=== PATIENT | male | born 1985 | race Caucasian/White ===

== ENCOUNTER 2024-10-06 07:28 | Emergency (ER) | payer OTHER ==
[~2024-10-06] VITALS: Ht 172.7 cm; Wt 77.1 kg
[~2024-10-06 07:28] MED LIST: ALPR.5 PO; CYCL10 PO; Naprosyn500 MG PO; Norco 5-325 Ta1 EACH PO; OXYACE5T PO; OXYC15ER PO; Percocet 5-3251 EACH PO; SULTRIDS PO
[2024-10-06 08:10] VITALS: BP 171/11
[2024-10-06] MEDS ORDERED: AMOX500 PO (08:14)
== END 2024-10-06 08:45 | disposition home or self-care (01) ==
LOC: ER 07:28
DX: K04.7 Periapical abscess without sinus (principal); Z79.899 Other long term (current) drug therapy; Z87.891 Personal history of nicotine dependence
CPT/HCPCS: 99282

== ENCOUNTER → 2025-02-22 | Emergency (ER) | payer OTHER ==
[~2025-02-22] VITALS: Ht 170.2 cm; Wt 74.8 kg
[~2025-02-22] MED LIST changes: +AMOX500 PO
[2025-02-22 18:17] VITALS: BP 121/90
== END ==
LOC: ER 18:11
DX: S51.852A Open bite of left forearm, initial encounter (principal); W54.0XXA Bitten by dog, initial encounter; Z87.891 Personal history of nicotine dependence
CPT/HCPCS: 12002; 99283-25; A9270

== ENCOUNTER 2025-05-13 14:50 | Emergency (ER) | payer OTHER ==
[~2025-05-13] VITALS: Ht 175.3 cm; Wt 72.6 kg
[2025-05-13 17:03] LABS: BASOPHILS ABSOLUTE AUTO 0.05 K/mm3 (0.00-0.23); BASOPHILS PERCENT AUTO 1 % (0-2); EOSINOPHILS ABSOLUTE AUTO 0.06 K/mm3 (0.00-0.68); EOSINOPHILS PERCENT AUTO 1 % (0-6); Hematocrit 28.6 % (37.0-53.0); Hemoglobin 10.1 g/dL (13.5-17.5); IMMATURE GRAN ABSOLUTE AUTO 0.02 K/mm3 (0.00-0.10); IMMATURE GRAN PERCENT AUTO 0 % (0-1); LYMPHOCYTES ABSOLUTE AUTO 1.38 K/mm3 (0.84-5.20); LYMPHOCYTES PERCENT AUTO 18 % (21-46); MONOCYTES ABSOLUTE AUTO 0.65 K/mm3 (0.16-1.47); MONOCYTES PERCENT AUTO 9 % (4-13); Mean Corpuscular HGB Conc 35.3 g/dL (31.5-36.5); Mean Corpuscular Volume 88 fL (80-100); NEUTROPHILS ABSOLUTE AUTO 5.45 K/mm3 (1.96-9.15); NEUTROPHILS PERCENT AUTO 72 % (41-73); NRBC ABSOLUTE 0.00 K/mm3 (0.00-0.02); NRBC Auto 0.0 /100 WBC (0.0-0.2); Platelet Count 321 K/mm3 (150-400); RDW Coefficient Variation 11.9 % (11.7-14.2); RDW Standard Deviation 38.4 fL (35.1-46.3)
[2025-05-13 17:18] LABS: Prothrombin Time Results 10.9 Sec (9.7-11.5)
[2025-05-13 17:23] LABS: Anion Gap 12.0 mmol/L (3-11); Blood Urea Nitrogen 43.0 mg/dL (8-24); CO2, Blood 24.0 mmol/L (21-32); Calcium, Blood 8.5 mg/dL (8.5-10.1); Chloride, Blood 103.0 mmol/L (98-108); Creatinine, Blood 0.71 mg/dL (0.60-1.20); Glucose, Blood 100.0 mg/dL (70-99); Potassium, Blood 4.6 mmol/L (3.5-5.5); Sodium, Blood 134.0 mmol/L (136-145)
[2025-05-13 18:00] VITALS: BP 116/76
[2025-05-13] MEDS ORDERED: AMOCLA875 PO (18:13)
== END 2025-05-13 18:31 | disposition home or self-care (01) ==
LOC: ER 14:50
PROVIDERS: Student in an Organized Health Care Education/Training Program
DX: S02.2XXA Fracture of nasal bones, initial encounter for closed fracture (principal); S01.21XA Laceration without foreign body of nose, initial encounter; Z79.899 Other long term (current) drug therapy; Z87.891 Personal history of nicotine dependence; W22.8XXA Striking against or struck by other objects, initial encounter; Y93.44 Activity, trampolining
CPT/HCPCS: 70450; 70486; 72125; 80048; 85025; 85610; 85730; 99284-25; A9270

== ENCOUNTER 2025-05-20 12:33 | Day surgery (SDC) | payer OTHER ==
[~2025-05-20] VITALS: Ht 170.2 cm; Wt 67.8 kg
[~2025-05-20 12:33] MED LIST changes: +AMOCLA875 PO; +NS 500 ML IV ONE
[2025-05-20] MEDS ORDERED: ALPR1 PO (12:58)
[2025-05-20] MEDS ORDERED: Budeprion Xl300 MG PO (12:58)
[2025-05-20] MEDS ORDERED: NS 500 ML IV ONE (13:10)
[2025-05-20] MEDS ORDERED: Oxymetazoline 0.05% Nasal Relief Spray 15mL BTL ONE (13:49)
[2025-05-20] MEDS ORDERED: Lidocaine 2%-Epineph 1:200000 20 ML SDV ONE (13:49)
[2025-05-20] MEDS ORDERED: Cocaine HCl 4% Solution 4 ML ONE (13:49)
[2025-05-20] MEDS ORDERED: Midazolam HCl 1MG / ML 2ML Vial ONE (13:58)
[2025-05-20] MEDS ORDERED: FentaNYL Citrate 50 MCG/ML 2 ML Injection ONE (13:58)
[2025-05-20] MEDS ORDERED: Glycopyrrolate 0.2 MG/ML 5ML VIAL ONE (14:14)
[2025-05-20] MEDS ORDERED: Sugammadex Sodium 200 MG/2ML SDV (100 MG/ML) ONE (14:18)
--- NOTE | 2025-05-20 14:39 | NUR ---
05/20/25 1439 Christine Flor REPORT RECEIVED FROM RUSTY AND RN. PT ASLEEP UPON ARRIVAL TO PACU, CURRENTLY AROUSABLE TO VOICE. PT FOLLOWS COMMANDS AND ANSWERS QUESTIONS. REPORTS NOSE HURTS "A LITTLE BIT" AT THIS TIME. VSS. 100% ON RA. IV SITE RED AND SWOLLEN, RUSTY MADE AWARE, FLUIDS DISCONTINUED AT THIS TIME. REDNESS NOTED TO BRIDGE OF NOSE. SCARRING FROM PREVIOUS SURGERIES/INJURY NOTED TO NOSE WELL.
[2025-05-20 14:58] VITALS: BP 142/99
--- NOTE | 2025-05-20 15:14 | NUR ---
05/20/25 1514 Christine Flor 1445: VERBAL ORDER FROM DR. MADRID FOR 1 GRAM PO TYLENOL ONE TIME.
== END 2025-05-20 15:26 | disposition home or self-care (01) ==
LOC: ORSCSDS 12:33
PROVIDERS: Otolaryngology
PROC: 0NSBXZZ Reposition Nasal Bone, External Approach (ICD-10-PCS; principal; 2025-05-20 14:30)
DX: S02.2XXA Fracture of nasal bones, initial encounter for closed fracture (principal); Y93.44 Activity, trampolining
CPT/HCPCS: A9270; C9046; J2250; J2704; J3010; J7040